=== PATIENT | female | born 1980 | race Caucasian/White ===

== ENCOUNTER 2017-06-18 01:09 | Inpatient (IN) | payer MEDICAID ==
[2017-06-18] VITALS (16 sets, daily range): BP systolic 89–121; BP diastolic 53–95; PULSE 65–106; RESP 12–18; TEMP 97.7–98.4
[~2017-06-18] VITALS: Ht 170.2 cm; Wt 91.0 kg
[~2017-06-18 01:09] MED LIST: PREN0.01 PO
[2017-06-18] MEDS ORDERED: OXYTOCIN 30 UNITS-500ML PREMIX 500 ML ONE ×2 (01:22)
[2017-06-18] MEDS ORDERED: LIDOCAINE HCL 1% 50 ML VIAL ONE ×2 (01:23)
[2017-06-18 01:38] LABS: AUTOMATED NEUTROPHIL # 6.9 TH/MM3 (1.8-7.7); BASOPHIL % 0.5 % (0.0-2.0); EOSINOPHIL % 0.3 % (0.0-4.0); HEMATOCRIT 38.5 % (35.0-46.0); HEMOGLOBIN 13.4 GM/DL (11.6-15.3); LYMPH % 16.8 % (9.0-44.0); LYMPHOCYTE # 1.5 TH/MM3 (1.0-4.8); MEAN CELL VOLUME 95.2 FL (80.0-100.0); MEAN CORPUSCULAR HGB CONC 34.7 % (32.0-36.0); MEAN PLATELET VOLUME 8.3 FL (7.0-11.0); MONO % 4.3 % (0.0-8.0); MONOCYTE # 0.4 TH/MM3 (0-0.9); NEUT % 78.1 % (16.0-70.0); PLATELET COUNT 171 TH/MM3 (150-450); RED BLOOD COUNT 4.05 MIL/MM3 (4.00-5.30); RED CELL DISTRIBUTION WIDTH 12.8 % (11.6-17.2); WHITE BLOOD COUNT 8.8 TH/MM3 (4.0-11.0)
[2017-06-18] MEDS ORDERED: MEPERIDINE HCL 50 MG/ML VIAL ONE ×2 (01:42)
[2017-06-18] MEDS ORDERED: LACTATED RINGER'S 1000 ML IV SCH ×2 (01:45)
[2017-06-18] MEDS ORDERED: LIDOCAINE HCL 1% 50 ML VIAL I-DERMAL PRN ×2 (01:45)
[2017-06-18] MEDS ORDERED: NS 1000 ML IV PRN ×2 (01:45)
[2017-06-18] MEDS ORDERED: MINERAL OIL 10 ML VIAL TOPICAL PRN ×2 (01:45)
[2017-06-18] MEDS ORDERED: LACTATED RINGER'S 1000 ML BOLUS IV PRN ×2 (01:45)
[2017-06-18] MEDS ORDERED: CITRIC ACID-SODIUM CITRATE LIQ 30 ML UDC PO SCH ×2 (01:45)
[2017-06-18] MEDS ORDERED: NS 500 ML BOLUS IV PRN ×2 (01:45)
[2017-06-18] MEDS ORDERED: ONDANSETRON HCL 4 MG/2 ML VIAL IV PUSH PRN ×2 (01:45)
[2017-06-18] MEDS ORDERED: OXYTOCIN 30 UNITS 500ML PREMIX IV ONE ×2 (01:45)
[2017-06-18] MEDS ORDERED: LIDOCAINE HCL 1% 50 ML VIAL INFIL PRN ×2 (01:45)
--- NOTE | 2017-06-18 01:51 | HHI.HP ---
History & Physical H&P Patient Name: Marlene Trotter Unit Number: [id number] Date of : 1980 Patient Status: Admitted Inpatient Attending Doctor: Tammy Gilliam MD HPI HPI Chief Complaint Contractions Travel History International Travel<30 Days: No Contact w/Intl Traveler<30Days: No Known Affected Area: No History of Present Illness HPI 37-year-old , IUP at 40.3 care complicated by prior 2, 3, advanced maternal age, significant stress in life at this time, GBS positive, rubella nonimmune, grand multiparity The patient presents complaining of the onset of painful contractions apparently one hour before she arrived. She reports her contractions increased in intensity and frequency to every 2 minutes. There were no aggravating or alleviating factors and no attempted treatments. She denies any leaking of fluid or vaginal bleeding. She reports good movement Weeks Gestation: 40 Para: 5 : 6 History (Limited) History Past Medical History Medical History: Denies Significant Hx Obstetric History Obstetric History G6 P 5005 delivery with child 1 and 3 with children 2, 4, 5 Denies abnormal Paps or STDs Past Surgical History Narrative Surgical section 2 Laparoscopy 1 for endometriosis Family History Family History: Negative Social History Alcohol Use: No Tobacco Use: No Substance Abuse: No Allergies-Medications Allergies-Medications (Allergen,Severity, Reaction): Coded Allergies: codeine (Unverified Allergy, Severe, NASEUA AND VOMITING, 03/31/17) Home Meds Reported Medications Multivit/Min/Fol Ac/Iron/Pren ( Vit ( Plus)) Tab, 1 TAB PO DAILY 09/05/11 ROS Review of Systems Physical Exam Physical Exam Narrative GENERAL: Well-nourished, well-developed patient. SKIN: Warm and dry. HEAD: Normocephalic and atraumatic. EYES: No scleral icterus. No injection or drainage. ENT: No nasal drainage noted. Mucous membranes pink. Airway patent. NECK: Supple, trachea midline. No JVD. CARDIOVASCULAR: Regular rate and rhythm without murmurs, gallops, or rubs. RESPIRATORY: Breath sounds equal bilaterally. No accessory muscle use. BREASTS: Deferred ABDOMEN/GI: Abdomen soft, non-tender, bowel sounds present, no rebound, no guarding Gravid GENITOURINARY: External Genitalia: intact and normal in appearance. Grossly normal BUS glands. SVE complete/complete/+1 FHT's: FHTs 150s to 160s with moderate long-term variability and good accelerations, no decelerations noted] EXTREMITIES: No cyanosis or edema. BACK: Nontender without obvious deformity. NEUROLOGICAL: Awake and alert. Motor and sensory grossly within normal limits. Five out of 5 muscle strength in all muscle groups. Normal speech. Musculoskeletal: Grossly normal memory range of motion, gait, muscle strength Psychiatric: Grossly normal memory and affect Data Data Data Orders Orders Oxytocin 30 Units-500ml Premix (Pitocin (06/18/17 01:22) Lidocaine 1% Inj (50 Ml) (Xylocaine 1% I (06/18/17 01:23) Complete Blood Count With Diff (06/18/17 01:26) Abo/Rh Blood Type (06/18/17 01:28) Hold Clot (06/18/17 01:28) Admit To Inpatient (06/18/17 ) Vital Signs (Adult) .Per protocol (06/18/17 01:30) Heart (06/18/17 01:30) Amnioinfusion (06/18/17 01:30) Urinary Catheter Management .ONCE (06/18/17 01:30) Urinalysis - C+S If Indicated (06/18/17 01:30) Drug Screen, Random Urine (06/18/17 01:30) Resp Oxygen Non Rebreathe Mask (06/18/17 ) ^ Epidural / Intrathecal Infus (06/18/17 01:30) Ob (2e) Additional Admit Info (06/18/17 01:32) Lactated Ringer's 1000 Ml Inj (Lr 1000 M (06/18/17 01:45) Lactated Ringer's 1000 Ml Inj (Lr 1000 M (06/18/17 01:45) Sodium Chlorid 0.9% 500 Ml Inj (Ns 500 M (06/18/17 01:45) Sodium Chlor 0.9% 1000 Ml Inj (Ns 1000 M (06/18/17 01:45) Lidocaine 1% Inj (50 Ml) (Xylocaine 1% I (06/18/17 01:45) Citric Acid-Sodium Citrate Liq (Bicitra (06/18/17 01:45) Ondansetron Inj (Zofran Inj) (06/18/17 01:45) Fentanyl Inj (Fentanyl Inj) (06/18/17 01:45) Fentanyl Inj (Fentanyl Inj) (06/18/17 01:45) Oxytocin 30 Units-500ml Premix (Pitocin (06/18/17 01:45) Lidocaine 1% Inj (50 Ml) (Xylocaine 1% I (06/18/17 01:45) Light Mineral Oil (Muri-Lube Oil) (06/18/17 01:45) Labs Laboratory Tests Test 06/18/17 01:24 White Blood Count 8.8 Red Blood Count 4.05 Hemoglobin 13.4 Hematocrit 38.5 Mean Corpuscular Volume 95.2 Mean Corpuscular Hemoglobin 33.0 Mean Corpuscular Hemoglobin Concent 34.7 Red Cell Distribution Width 12.8 Platelet Count 171 Mean Platelet Volume 8.3 Neutrophils (%) (Auto) 78.1 Lymphocytes (%) (Auto) 16.8 Monocytes (%) (Auto) 4.3 Eosinophils (%) (Auto) 0.3 Basophils (%) (Auto) 0.5 Neutrophils # (Auto) 6.9 Lymphocytes # (Auto) 1.5 Monocytes # (Auto) 0.4 Eosinophils # (Auto) 0.0 Basophils # (Auto) 0.0 CBC Comment DIFF FINAL Differential Comment MDM MDM Plan Assessment/plan: 1. IUP at 40.3 2. Active labor: Patient presented completely dilated in active labor, Dr. Gilliam notified. Will admit to Dr. Gilliam. Risks of normal spontaneous vaginal delivery discussed with patient, patient with 2 previous cesareans but has successfully 3 times. Anticipate normal spontaneous vaginal delivery. 3. GBS positive: Due to expected rapid delivery a patient unlikely to receiving antibiotics 4. Significant social stressors with in the ICU 5. Grand multiparity 6. well-being: Reassuring testing, continue EFM 7. Advanced maternal age 8. Rubella nonimmune Yessy Rasmussen MD Jun 18, 2017 01:49 Yessy Rasmussen MD Jun 18, 2017 01:51
[2017-06-18] MEDS ORDERED: SODIUM CHLORIDE 0.9% FLUSH 10 ML FLUSH IV FLUSH PRN ×2 (02:00)
[2017-06-18] MEDS ORDERED: ALUMINUM/MAGNESIUM/SIMETH 30 ML CUP PO PRN ×2 (02:00)
[2017-06-18] MEDS ORDERED: ACETAMINOPHEN 325 MG TAB PO PRN ×2 (02:00)
[2017-06-18] MEDS ORDERED: WITCH HAZEL 50%/GLYCERIN 12.5% 40 PAD JAR TOPICAL PRN ×2 (02:00)
[2017-06-18] MEDS ORDERED: ONDANSETRON ODT 4 MG TAB PO PRN ×2 (02:00)
[2017-06-18] MEDS ORDERED: BENZOCAINE 20% TOPICAL SPRAY 60 ML CAN TOPICAL PRN ×2 (02:00)
[2017-06-18] MEDS ORDERED: ZOLPIDEM TARTRATE 5 MG TAB PO PRN ×2 (02:00)
[2017-06-18] MEDS ORDERED: OXYTOCIN 30 UNITS-500ML PREMIX 500 ML IV SCH ×2 (02:00)
--- NOTE | 2017-06-18 02:10 | PD.OB.DELI ---
Weeks gestation: 40 Gest age assessed date: Jun 18, 2017 Gest age assessed time: 01:30 Pt started active labor?: Yes Active labor start date: Jun 17, 2017 Active labor start time: 23:00 Medical induction of labor?: No Artificial rupture of membrane: Yes Artificial ROM date: Jun 18, 2017 Artifical ROM time: 01:35 Anesthesia: None Episiotomy: None Vaginal Delivery: Normal Presentation: Occiput anterior Nuchal Cord: None Delayed cord clamping (45 sec): Yes : Female Delivery date: Jun 18, 2017 Delivery time: 01:36 One Minute : 8 Five Minute : 9 Weight: 7/0 Placenta: Spontaneous delivery, Intact, 3 vessel cord Estimated blood loss: 300 Additional Information Pt came in C/C. I needed to get here quick Beautiful delivery of Berta-em. No lacerations.. Tammy Gilliam MD Jun 18, 2017 02:10
[2017-06-18] MEDS ORDERED: MEPERIDINE HCL 50 MG/ML VIAL IV ONE ×2 (05:00)
[2017-06-18 05:06] LABS: ALBUMIN 2.6 GM/DL (3.4-5.0); ALT (GPT) 15 U/L (10-53); AST (GOT) 17 U/L (15-37); BICARBONATE 21.2 MEQ/L (21.0-32.0); BLOOD UREA NITROGEN 13 MG/DL (7-18); CALCIUM 8.1 MG/DL (8.5-10.1); CHLORIDE 105 MEQ/L (98-107); CREATININE 0.65 MG/DL (0.50-1.00); GLOMERULAR FILTRATION RATE 102 ML/MIN (>89); GLUCOSE,RANDOM 123 MG/DL (74-106); SODIUM (NA) 138 MEQ/L (136-145)
[2017-06-18 05:09] LABS: ALKALINE PHOSPHATASE 132 U/L (45-117); TOTAL BILIRUBIN ADULT 0.2 MG/DL (0.2-1.0); TOTAL PROTEIN 6.2 GM/DL (6.4-8.2)
[2017-06-18] MEDS: IBUPROFEN 600 MG TAB PO PRN ×6 (06:04→20:08)
[2017-06-18] MEDS: oxyCODONE/ACETAMINOPHEN 5 MG/325 MG TAB PO PRN ×4 (06:05→15:11)
[2017-06-18] MEDS ORDERED: SODIUM CHLORIDE 0.9% FLUSH 10 ML FLUSH IV FLUSH SCH ×2 (09:00)
[2017-06-18] MEDS ORDERED: MEASLES, MUMPS, RUBELLA VACCINE 0.5 ML VIAL SQ ONE ×2 (16:00)
[2017-06-18] MEDS ORDERED: DIPHTH/TETANUS/ACEL PERTUSSIS (BOOSTER) 0.5 ML VIAL/PFS IM ONE ×2 (16:00)
[2017-06-18] MEDS ORDERED: IBUP-232 PO ×2 (17:29)
[2017-06-18] MEDS ORDERED: OXYC1TAB63 PO ×2 (17:29)
--- NOTE | 2017-06-18 17:30 | HHI.DCPOC ---
Discharge Care Plan Diagnosis: (1) Vaginal after , delivered, current hospitalization Report Symptoms to Your Doctor -Temperature above 100.5 degrees -Redness, of incision or excessive or foul smelling drainage -Unusual pain or calf pain -Increased vaginal bleeding -Painful or difficulty urinating -Feelings of extreme sadness or anxiety after 2 weeks Goals to Promote Your Health * To prevent worsening of your condition and complications * To maintain your health at the optimal level Directions to Meet Your Goals Take your medications as prescribed Follow your dietary instruction Follow activity as directed Ensure plenty of rest for recovery Drink fluids for hydration Keep your appointments as scheduled Take your immunizations and boosters as scheduled If your symptoms worsen call your PCP, if no PCP go to Urgent Care Center or Emergency Room Smoking is Dangerous to Your Health. Avoid second hand smoke Call the 24-hour crisis hotline for domestic abuse at Tammy Gilliam MD Jun 18, 2017 17:30
[2017-06-19] MEDS: IBUPROFEN 600 MG TAB PO PRN ×4 (02:22→13:51)
[2017-06-19] MEDS: oxyCODONE/ACETAMINOPHEN 5 MG/325 MG TAB PO PRN ×4 (02:23→13:51)
[2017-06-19 09:00] VITALS: BP 100/64; PULSE 66; RESP 18; TEMP 97.9
--- NOTE | 2017-06-19 09:57 | HHI.OB ---
Subjective Post Day: 1 Objective Vitals/I&O Vital Signs Date Time Temp Pulse Resp B/P (MAP) Pulse Ox O2 Delivery O2 Flow Rate FiO2 06/18/17 19:50 65 96/65 (75) 06/18/17 19:50 97.8 18 Objective Remarks GENERAL: Well-nourished, well-developed patient. CARDIOVASCULAR: Regular rate and rhythm without murmurs, gallops, or rubs. RESPIRATORY: Breath sounds equal bilaterally. No accessory muscle use. ABDOMEN/GI: Abdomen soft, non-tender. Fundus: Firm, non-tender at umbilicus. GENITOURINARY: Light to moderate bleeding. EXTREMITIES: No cyanosis or edema, non-tender, without signs of DVT. Medications and IVs Current Medications Medications (Trade) Dose Ordered Sig/Mendy Route Start Time Stop Time Status Last Admin (NS Flush) 2 ml BID IV FLUSH 06/18/17 09:00 06/18/17 03:00 (NS Flush) 2 ml UNSCH PRN IV FLUSH 06/18/17 02:00 (Tylenol) 650 mg Q4H PRN PO 06/18/17 02:00 (Motrin) 600 mg Q6H PRN PO 06/18/17 02:00 06/19/17 02:22 (Percocet 5-325 Mg) 1 tab Q4H PRN PO 06/18/17 02:00 06/18/17 15:11 (Percocet 5-325 Mg) 2 tab Q4H PRN PO 06/18/17 02:00 06/19/17 02:23 (Americaine 20% Top Spr) 1 spray Q4H PRN TOPICAL 06/18/17 02:00 06/18/17 04:54 (Tucks Pads) 1 applic QID PRN TOPICAL 06/18/17 02:00 06/18/17 04:54 (Doreen-Colace) 2 tab Q12H PRN PO 06/18/17 02:00 (Ambien) 5 mg HS PRN PO 06/18/17 02:00 (Mag-Al Plus Susp Liq) 15 ml Q8H PRN PO 06/18/17 02:00 (Zofran Odt) 4 mg Q6H PRN PO 06/18/17 02:00 Assessment/Plan Problem List: (1) (vaginal after ) ICD Codes: O34.219 - Maternal care for unspecified type scar from previous delivery Assessment and Plan POD #1 pt doing well pain well managed with oral pain medication pt bonding with infant routine care Discharge Planning dc home tomorrow Christianne Henderson Jun 19, 2017 09:57
--- NOTE | 2017-06-19 10:00 | HHI.DS ---
Admission Date Jun 18, 2017 at 01:16 Discharge Date: Jun 20, 2017 Admitting Diagnosis 40 weeks gestation history of successful labor Diagnosis: (1) (vaginal after ) ICD Codes: O34.219 - Maternal care for unspecified type scar from previous delivery Delivery Date: Jun 18, 2017 Vaginal Delivery: Normal : Female Brief History 37-year-old , IUP at 40.3 care complicated by prior 2, 3, advanced maternal age, significant stress in life at this time, GBS positive, rubella nonimmune, grand multiparity The patient presents complaining of the onset of painful contractions apparently one hour before she arrived. She reports her contractions increased in intensity and frequency to every 2 minutes. There were no aggravating or alleviating factors and no attempted treatments. She denies any leaking of fluid or vaginal bleeding. She reports good movement Hospital Course presented complete routine care Pt Condition on Discharge: Good Discharge Disposition: Discharge Home Discharge Instructions Diet Instructions: As Tolerated, No Restrictions Additional Diet Instructions: Drink at least 8 - 16 oz bottles of water a day Activities You Can Perform: Shower Only-No Bath, Sitz Bath Activities to Avoid: Lifting/Bending, Sexual Activity Additional Activity Instruc.: No driving until off pain medications Do not lift anything heavier than your baby in an infant carrier Follow up Referrals: REHABILITATION COORDINATOR - 2 Weeks @ [facility] New Medications: Ibuprofen (Ibuprofen) 600 Mg Tab 600 MG PO Q6H PRN for CRAMPING, #30 TAB Oxycodone-Acetaminophen (Oxycodone-Acetaminophen) 5-325 mg Tab 1 TAB PO Q4H PRN for moderate pain, #15 TAB Continued Medications: Multivit/Min/Fol Ac/Iron/Pren ( Vit ( Plus)) 27 Mg Iron-1 Mg Tab 1 TAB PO DAILY Christianne Henderson Jun 19, 2017 10:00
[2017-06-19 15:40] VITALS: RESP 18
[2017-06-19] MEDS: DOCUSATE SODIUM 50 MG/SENNA 8.6 MG TAB PO PRN ×2 (16:33)
[2017-06-19 19:40] VITALS: BP 101/69; PULSE 67; RESP 16; TEMP 97.9
[2017-06-20] MEDS: IBUPROFEN 600 MG TAB PO PRN ×4 (01:21→09:20)
[2017-06-20] MEDS: oxyCODONE/ACETAMINOPHEN 5 MG/325 MG TAB PO PRN ×4 (01:21→09:19)
[2017-06-20 08:00] VITALS: BP 109/74; PULSE 67; RESP 16; TEMP 97.8
[2017-06-20] MEDS: DOCUSATE SODIUM 50 MG/SENNA 8.6 MG TAB PO PRN ×2 (09:21)
--- NOTE | 2017-06-20 11:49 | HHI.OB ---
Subjective Post Day: 2 Remarks has varicose veins on ble. Increased tenderness of rle by ankle and has soreness of calf. States she has had increased leg cramps recently. Objective Vitals/I&O Vital Signs Date Time Temp Pulse Resp B/P (MAP) Pulse Ox O2 Delivery O2 Flow Rate FiO2 06/20/17 08:00 97.8 67 16 109/74 (86) 06/19/17 19:40 97.9 67 16 101/69 (80) 06/19/17 15:40 18 Objective Remarks GENERAL: Well-nourished, well-developed patient. CARDIOVASCULAR: Regular rate and rhythm without murmurs, gallops, or rubs. RESPIRATORY: Breath sounds equal bilaterally. No accessory muscle use. ABDOMEN/GI: Abdomen soft, non-tender. Fundus: Firm, non-tender at umbilicus. GENITOURINARY: Light to moderate bleeding. EXTREMITIES: No cyanosis. Trace edema ble. extensive varicose veins of ble rle >lle. over right ankle, small ecchymosis, likely ruptured varicose vein with increased tenderness and mild warmth Medications and IVs Current Medications Medications (Trade) Dose Ordered Sig/Mendy Route Start Time Stop Time Status Last Admin (NS Flush) 2 ml BID IV FLUSH 06/18/17 09:00 06/18/17 03:00 (NS Flush) 2 ml UNSCH PRN IV FLUSH 06/18/17 02:00 (Tylenol) 650 mg Q4H PRN PO 06/18/17 02:00 (Motrin) 600 mg Q6H PRN PO 06/18/17 02:00 06/20/17 09:20 (Percocet 5-325 Mg) 1 tab Q4H PRN PO 06/18/17 02:00 06/20/17 09:19 (Percocet 5-325 Mg) 2 tab Q4H PRN PO 06/18/17 02:00 06/19/17 02:23 (Americaine 20% Top Spr) 1 spray Q4H PRN TOPICAL 06/18/17 02:00 06/18/17 04:54 (Tucks Pads) 1 applic QID PRN TOPICAL 06/18/17 02:00 06/18/17 04:54 (Doreen-Colace) 2 tab Q12H PRN PO 06/18/17 02:00 06/20/17 09:21 (Ambien) 5 mg HS PRN PO 06/18/17 02:00 (Mag-Al Plus Susp Liq) 15 ml Q8H PRN PO 06/18/17 02:00 (Zofran Odt) 4 mg Q6H PRN PO 06/18/17 02:00 Assessment/Plan Problem List: (1) (vaginal after ) ICD Codes: O34.219 - Maternal care for unspecified type scar from previous delivery Assessment and Plan PPD #2 multiple varicosities of ble, tenderness. will order dopplers and await result before discharge. pt bonding with routine care Discharge Planning dc home today if normal dopplers Rachael Barth MD Jun 20, 2017 11:49
--- NOTE | 2017-06-20 11:57 | RADRPT ---
EXAM DATE/TIME: 06/20/2017 11:38 [facility] COMPARISON: No previous studies available for comparison. INDICATIONS : Right leg pain. MEDICAL HISTORY : Right leg pain. Endometriosis. SURGICAL HISTORY : section. ENCOUNTER: Subsequent ACUITY: 4 - 6 days PAIN SCORE: 4/10 LOCATION: Right leg. TECHNIQUE: Venous ultrasound of the leg was performed from the inguinal ligament to the proximal calf. Real-vita e, color Doppler and spectral tracing, compression and augmentation techniques were used. FINDINGS: There is normal compressibility of the deep venous system from the inguinal region to the proximal ca lf. No echogenic clot is seen in the lumen of the common femoral, femoral, popliteal, and posterior tibial veins. There is a normal response of the venous system to proximal and distal augmentation an d respiration. CONCLUSION: 1. No sonographic evidence for right lower extremity DVT. Clayton Santizo MD on June 20, 2017 at 11:55 Board Certified Radiologist. This report was verified electronically.
== END 2017-06-20 15:50 | disposition home or self-care (01) | DRG 775 ==
LOC: HOBED 01:09 → H2EA 01:16 → H1EA 04:09
PROVIDERS: ADMIT Obstetrics & Gynecology; ATTEND Obstetrics & Gynecology
PROC: 10E0XZZ Delivery of Products of Conception, External Approach (ICD-10-PCS; principal; 2017-06-18)
DX: O34.219 Maternal care for unspecified type scar from previous cesarean delivery (principal); O99.824 Streptococcus B carrier state complicating childbirth; O87.4 Varicose veins of lower extremity in the puerperium; Z37.0 Single live birth; Z3A.40 40 weeks gestation of pregnancy
CPT/HCPCS: 80053; 85025; 86900; 86901; 93971; J2175; J2590